=== PATIENT | female | born 1995 | race Two or more races ===

== ENCOUNTER 2019-04-04 15:25 | Emergency (ER) | payer MEDICAID ==
[~2019-04-04] VITALS: Ht 157.5 cm; Wt 61.2 kg
[2019-04-04] MEDS ORDERED: LEVOTHYROXINE75 MCG ORAL (15:35)
[2019-04-04] MEDS ORDERED: VITAMIN D1000 UNI1 ORAL (15:35)
[2019-04-04 15:36] VITALS: BP 114/70
[2019-04-04 16:18] LABS: APPEARANCE,URINE CLEAR; BILIRUBIN, URINE NEGATIVE (NEGATIVE); COLOR,URINE PALE YELLOW; GLUCOSE, URINE (UA) NEGATIVE (NEGATIVE); KETONES,URINE NEGATIVE (NEGATIVE); LEUKOCYTE ESTERASE ,URINE 1+ (NEGATIVE); NITRITE,URINE NEGATIVE (NEGATIVE); PH,URINE 8 (4.5-8.0); PROTEIN,URINE NEGATIVE (NEGATIVE); UROBILINOGEN,URINE NORMAL MG/DL (0.0-1.0)
--- NOTE | 2019-04-04 16:21 | Emergency Room Report ---
History of Present Illness General Chief Complaint: Upper Respiratory Illness Source: Patient Present Illness HPI 23-year-old female with no significant past medical history here complaining of 3 days of 10 out of 10 sore throat without radiation as well as cough and congestion. Denies fever and chills, chest pain, shortness of breath, palpitation, and other associated symptoms. Has not taken medication for symptom relief. Denies recent travel sick contact. Patient also complains of 1 day of urinary frequency and dysuria. Denies hematuria. Last menstrual period was a week ago and regular. Denies all other associated symptoms. Allergies: Coded Allergies: No Known Allergies (Unverified , 04/04/19) Patient History Past Medical History: see triage record Past Surgical History: unable to obtain Pertinent Family History: none Last Menstrual Period: 03/07/19 Now: No Immunizations: UTD Reviewed Nursing Documentation: PMH: Agreed; PSxH: Agreed Nursing Documentation-PMH Past Medical History: No Stated History Review of Systems All Other Systems: negative except mentioned in HPI Physical Exam Vital Signs Date Time Temp Pulse Resp B/P (MAP) Pulse Ox O2 Delivery O2 Flow Rate FiO2 04/04/19 15:33 97.7 90 18 114/70 (85) 97 Room Air Sp02 EP Interpretation: reviewed, normal General Appearance: no apparent distress, alert, GCS 15, non-toxic Head: normocephalic, atraumatic Eyes: bilateral eye normal inspection, bilateral eye PERRL ENT: hearing grossly normal, no angioedema, normal voice, TMs + canals normal, moist mucus membranes, tonsillar swelling, pharyngeal erythema Neck: full range of motion, supple/symm/no masses Respiratory: chest non-tender, lungs clear, normal breath sounds, no wheezing, speaking full sentences Cardiovascular #1: regular rate, rhythm, no edema, no murmur Gastrointestinal: normal bowel sounds, non tender, soft, non-distended, no guarding, no rebound Rectal: deferred Genitourinary: normal inspection, no CVA tenderness Musculoskeletal: back normal, gait/station normal, normal range of motion, non- tender, no calf tenderness Neurologic: alert, oriented x3, responsive, motor strength/tone normal, sensory intact, speech normal Psychiatric: judgement/insight normal, memory normal, mood/affect normal, no suicidal/homicidal ideation Skin: no rash Lymphatic: no adenopathy Medical Decision Making PA Attestation All my diagnosis and treatment plans were reviewed ad discussed with my supervising physician Dr. Barnard Diagnostic Impression: Primary Impression: Pharyngitis Additional Impression: UTI (urinary tract infection) ER Course 23-year-old female with no significant past medical history here complaining of 3 days of 10 out of 10 sore throat without radiation as well as cough and congestion. Denies fever and chills, chest pain, shortness of breath, palpitation, and other associated symptoms. Has not taken medication for symptom relief. Denies recent travel sick contact. Patient also complains of 1 day of urinary frequency and dysuria. Denies hematuria. Last menstrual period was a week ago and regular. Denies all other associated symptoms. Ddx considered but are not limited to: strep pharyngitis, URI, tonsillitis, peritonsillar abscess, influneza Vital signs: are WNL, pt. is afebrile H&PE are most consistent with: Pharyngitis, UTI ORDERS: UA, urine , azithromycin, Flonase, F[facility] [place] ED INTERVENTIONS: None required at this time. DISCHARGE: At this time pt. is stable for d/c to home. Will provide printed patient care instructions, and any necessary prescriptions. Care plan and follow up instructions have been discussed with the patient prior to discharge. Last Vital Signs Date Time Temp Pulse Resp B/P (MAP) Pulse Ox O2 Delivery O2 Flow Rate FiO2 04/04/19 15:36 90 18 Room Air 04/04/19 15:36 97.7 114/70 97 Disposition: HOME, SELF-CARE Condition: Stable Scripts Benzonatate* (MELLISASALON PERLTrudy*) 100 Mg Capsule 100 MG ORAL THREE TIMES A DAY, #21 PERLE Prov: Rose Nick 04/04/19 Fluticasone Propionate (Flonase Allergy Relief) 9.9 Ml [place].susp 2 PUFF NS BID, #10 ML Prov: Rose Nick 04/04/19 Azithromycin* (ZITHROMAX*) 250 Mg Tablet 250 MG ORAL DAILY, #6 TAB 0 Refills Take two tables once daily for 1 day, then one tablet once daily for 4 days. Prov: Rose Nick 04/04/19 Patient Instructions: Pharyngitis, [id number], Urinary Tract Infection, Easy- to-Read Additional Instructions: Take medication as directed if worsening symptoms return to the emergency room follow-up with your primary care provider Rose Nick Apr 04, 2019 16:21
[2019-04-04] MEDS ORDERED: FLONASE ALLERG9.9 ML NS (16:23)
[2019-04-04] MEDS ORDERED: ZITHROMAX250 MG ORAL (16:23)
[2019-04-04] MEDS ORDERED: TESSALON PERLE100 MG ORAL (16:23)
--- NOTE | 2019-04-04 16:30 | NUR ---
ER DISCHARGE NOTE: Patient is cleared to be discharged per ERMD, pt is aox4, on room air, with stable vital signs. pt was given dc and prescription instructions, pt was able to verbalize understanding, pt is able to ambulate with steady gait. pt took all belongings.
[2019-04-04 16:33] VITALS: BP 114/70
== END 2019-04-04 16:15 | disposition home or self-care (01) ==
LOC: EMR 15:58
DX: J02.9 Acute pharyngitis, unspecified (principal); N39.0 Urinary tract infection, site not specified
CPT/HCPCS: 81001; Z7502; 99282

== ENCOUNTER 2019-07-08 19:18 | Emergency (ER) | payer SELFPAY ==
[~2019-07-08] VITALS: Ht 154.9 cm; Wt 65.8 kg
[~2019-07-08 19:18] MED LIST: FLONASE ALLERG9.9 ML NS; LEVOTHYROXINE75 MCG ORAL; TESSALON PERLE100 MG ORAL; VITAMIN D1000 UNI1 ORAL; ZITHROMAX250 MG ORAL
--- NOTE | 2019-07-08 19:37 | NUR ---
ED Nurse Note: Pt ambulated to ED from home c/o N/V x4, body aches and headache since 3pm. Pt reports epigastric pain as well. Pt is A&Ox4, VSS. Pt has had the flu shot. ERMD at bedside, urine sent to lab Addendum: 07/08/19 at 1940 by KDEARING HR [id number]
[2019-07-08 19:38] VITALS: BP 103/69
--- NOTE | 2019-07-08 19:44 | Emergency Room Report ---
History of Present Illness General Chief Complaint: Flu Like Symptoms Source: Patient Present Illness HPI Patient is a 23-year-old female who presents after increased fever and generalized body aches. She reports her son was recently diagnosed with the flu. She had been having increased headache as well as fever up to 102 degrees. She reports having nausea and vomiting. Denies any diarrhea. Reports having generalized abdominal pain. She reports having some burning sensation to her abdomen. Denies any severe cough. Allergies: Coded Allergies: No Known Allergies (Unverified , 04/04/19) Patient History Past Medical History: see triage record Last Menstrual Period: 07/08/19 Reviewed Nursing Documentation: PMH: Agreed; PSxH: Agreed Nursing Documentation-PMH Past Medical History: No History, Except For Review of Systems All Other Systems: negative except mentioned in HPI Physical Exam Vital Signs Date Time Temp Pulse Resp B/P (MAP) Pulse Ox O2 Delivery O2 Flow Rate FiO2 07/08/19 19:28 99.3 156 22 103/69 (80) 97 Room Air General Appearance: well appearing, no apparent distress, alert, GCS 15 Head: normocephalic, atraumatic ENT: hearing grossly normal, normal voice Neck: full range of motion, supple Respiratory: chest non-tender, lungs clear, normal breath sounds, no respiratory distress, speaking full sentences Cardiovascular #1: normal inspection Gastrointestinal: normal inspection, non tender, soft Musculoskeletal: normal inspection, no calf tenderness Neurologic: alert, motor strength/tone normal, composition worker III-XII nml as tested, EOM palsy, oriented x3, normal gait Psychiatric: mood/affect normal Skin: no rash Medical Decision Making Diagnostic Impression: Primary Impression: Pharyngitis ER Course The patient presented for increased fever and generalized pain. Differential diagnosis include was not limited to urinary tract infection, strep pharyngitis , pneumonia among others. Because of complexity of patient's case laboratory tests studies were ordered. Laboratory testing showed negative influenza. Patient will be given a prescription for oral antibiotics as she does appear to have tonsillitis. She was given prescriptions for nausea as well as fever. The patient is advised to follow up with primary care doctor in 1-2 days. Patient is advised to return if any worsening condition or if any changes in status that are concerning. This report is dictated with [employer] printer repair technician software which may occasionally lead to discrepancies related to use of this software. Last Vital Signs Date Time Temp Pulse Resp B/P (MAP) Pulse Ox O2 Delivery O2 Flow Rate FiO2 07/08/19 19:38 99.3 156 22 103/69 97 Room Air Status: improved Disposition: HOME, SELF-CARE Condition: Stable Scripts Amoxicillin* (AMOXIL*) 500 Mg Capsule 500 MG ORAL THREE TIMES A DAY, #21 CAP Prov: Curt Barnard MD 07/08/19 Ibuprofen* (MOTRIN*) 600 Mg Tablet 600 MG ORAL Q6H PRN for For Pain, #30 TAB 0 Refills Prov: Curt Barnard MD 07/08/19 Ondansetron Odt* (ZOFRAN ODT*) 4 Mg Tab.rapdis 4 MG BC EVERY 8 HOURS PRN for Nausea & Vomiting, #10 TAB 0 Refills Prov: Curt Barnard MD 07/08/19 Curt Barnard MD Jul 08, 2019 19:44
[2019-07-08] MEDS ORDERED: Dicyclomine HCl 10mg/5ml oral soln ORAL ONE (19:45)
[2019-07-08 19:59] LABS: APPEARANCE,URINE CLEAR; BILIRUBIN, URINE NEGATIVE (NEGATIVE); COLOR,URINE PALE YELLOW; GLUCOSE, URINE (UA) NEGATIVE (NEGATIVE); KETONES,URINE NEGATIVE (NEGATIVE); LEUKOCYTE ESTERASE ,URINE NEGATIVE (NEGATIVE); NITRITE,URINE NEGATIVE (NEGATIVE); PH,URINE 7 (4.5-8.0); PROTEIN,URINE NEGATIVE (NEGATIVE); UROBILINOGEN,URINE NORMAL MG/DL (0.0-1.0)
[2019-07-08] MEDS ORDERED: ONDANSETRON ODT4 MG BC (21:08)
[2019-07-08] MEDS ORDERED: AMOXICILLIN500 MG ORAL (21:08)
[2019-07-08] MEDS ORDERED: IBUPROFEN600 MG ORAL (21:08)
[2019-07-08 21:25] VITALS: BP 103/69
--- NOTE | 2019-07-08 21:25 | NUR ---
ER DISCHARGE NOTE: Patient is cleared to be discharged per ERMD, pt is aox4, on room air, with stable vital signs. pt was given dc and prescription instructions, pt was able to verbalize understanding, pt id band removed. pt is able to ambulate with steady gait. pt took all belongings.
== END 2019-07-08 21:25 | disposition home or self-care (01) ==
LOC: EMR 20:02
DX: J02.9 Acute pharyngitis, unspecified (principal)
CPT/HCPCS: 81003; 81025; 86710; 99283